=== PATIENT | female | born 1960 | race African-American/Black ===

== ENCOUNTER 2020-08-29 08:45 | Day surgery (SDC) | payer BC ==
[2020-08-29] MEDS ORDERED: Ringers Lactate 1,000 ML IV ONE (13:12)
[2020-08-29 13:15] VITALS: O2SAT 100
[2020-08-29] MEDS ORDERED: propofoL 200 MG/20 ML VIAL IV ONE (18:51)
[2020-08-29] MEDS ORDERED: LIDOCAINE 1% MPF 5 ML VIAL ONE (18:51)
--- NOTE | 2020-08-29 18:55 | ENDO RPT ---
[address], [address] COLONOSCOPY PROCEDURE REPORT EXAM DATE: 08/29/2020 PATIENT NAME: Luis Manuel Leigh MR #: [id number] BIRTHDATE: 1960 ATTENDING: Jaen Rubalcava DR STATUS: outpatient BENCH MANAGER: Izabel Hammond RN and Viki Lal INDICATIONS: The patient is a 60 yr old Female here for a colonoscopy due to colon cancer screening PROCEDURE PERFORMED: Colonoscopy with biopsy - cold polypectomy and Colonoscopy with biopsy MEDICATIONS: Per Anesthesia. ESTIMATED BLOOD LOSS: None CONSENT: The patient understands the risks and benefits of the procedure and understands that these risks include, but are not limited to: sedation, allergic reaction, infection, perforation and/or bleeding. Alternative means of evaluation and treatment include, among others: physical exam, x-rays, and/or surgical intervention. The patient elects to proceed with this endoscopic procedure. DESCRIPTION OF PROCEDURE: During intra-op preparation period all mechanical medical equipment was checked for proper function. Hand hygiene and appropriate measures for infection prevention was taken. Procedure, possible complications, alternatives including, but not limited to possibility of bleeding, perforation, tear, infection, sepsis, need for surgery, need for blood transfusion, were explained to the patient. After the risks, benefits and alternatives of the procedure were thoroughly explained, Informed consent was verified, confirmed and timeout was successfully executed by the treatment team. The patient was placed in the left lateral position. A digital rectal exam was performed and revealed internal hemorrhoids. After appropriate level of anesthesia, the scope was passed. The EC-[id number] ([id number]) endoscope was introduced through the anus and advanced to the cecum, which was identified by both the appendix and ileocecal valve. The quality of the prep was fair. The instrument was then slowly withdrawn as the colon was fully examined. Scope withdrawal time was 12 minutes. COLON FINDINGS: A medium sized smooth and polypoid shaped pedunculated polyp, ranging between 3-7mm in size, was found in the ascending colon. A polypectomy was performed with a cold snare. The resection was complete, the polyp tissue was completely retrieved and sent to histology. Melanosis coli. Retroflexed views revealed no abnormalities. The scope was then completely withdrawn from the patient and the procedure terminated. ADVERSE EVENTS: There were no complications. IMPRESSIONS: 1. Medium sized pedunculated polyp, ranging between 3-7mm in size, was found in the ascending colon; polypectomy was performed with a cold snare 2. Melanosis coli 3. Internal hemorrhoids RECOMMENDATIONS: 1. avoid NSAIDS for 2 weeks 2. await biopsy results 3. fiber rich diet 4. follow-up: office 2 week(s) 5. Monitor for any evidence of rectal bleeding. 6. yearly hemoquant 7. hemorrhoidal hygiene RECALL: for Colonoscopy, pending biopsy results. Jean Rubalcava DR eSigned: Jean Rubalcava DR 08/29/2020 6:54 PM cc: CPT CODES: ICD9 CODES: PATIENT NAME: Luis Manuel Leigh MR#: [id number]
[2020-08-29 19:13] VITALS: TEMP 96.8
[2020-08-29 19:30] VITALS: BP 128/75
== END 2020-08-29 19:28 | disposition home or self-care (01) ==
LOC: OR 08:45
PROVIDERS: ATTEND Surgery
PROC: 0DBK8ZX Excision of Ascending Colon, Via Natural or Artificial Opening Endoscopic, Diagnostic (ICD-10-PCS; principal; 2020-08-29 12:30)
DX: Z12.11 Encounter for screening for malignant neoplasm of colon (principal); D12.2 Benign neoplasm of ascending colon; K64.8 Other hemorrhoids; K63.89 Other specified diseases of intestine
CPT/HCPCS: 88305; 45385; J2704; J7120

== ENCOUNTER → 2020-09-15 | Day surgery (SDC) | payer BC ==
[~2020-09-15] MED LIST: BUPIVACAINE 0.25% PF 30 ML VIAL ONE; CEFAZOLIN/SWI 1gm 1 GM/10 ML SYR ONE; FENTANYL CITR 250 MCG/5 ML ONE; GLYCOPYRROLATE 0.2 MG/ML SYR ONE; KETOROLAC 30 MG/ML INJ ONE; LIDOCAINE 2% MPF 5 ML VIAL ONE; MIDAZOLAM HCL 2 MG/2 ML INJ ONE; ONDANSETRON 4 MG/2 ML VIAL ONE; PROMETHAZINE INJ 25 MG/ML AMP ONE; ROCURONIUM 50 MG/5 ML VIAL IV ONE; Ringers Lactate 1,000 ML IV ONE; dexAMETHasone 10 MG/ML VIAL ONE; propofoL 200 MG/20 ML VIAL IV ONE
[2020-09-15 11:36] VITALS: O2SAT 100
[2020-09-15] MEDS: HYDROMORPHONE HCL 1 MG/ML INJ ONE ×2 (11:40→11:50)
--- NOTE | 2020-09-15 11:42 | P.OP ---
Preoperative diagnosis: Incarcerated Ventral Incisional Recurrent Hernia Postoperative diagnosis: Incarcerated Ventral Incisional Recurrent Hernia Primary procedure: Open Ventral Incisional Hernia Repair with mesh Anesthesia: GETA Estimated blood loss: <5cc Specimen: hernia sack Findings: Incarcerated Ventral Incisional Recurrent Hernia - omentum Implants: 4.3cm Large Bard Ventralex mesh with strap Transferred to: Recovery Room Condition: Good
--- NOTE | 2020-09-15 13:27 | OP ---
Date of Procedure: 09/15/2020 Surgeon: Jean Rubalcava MD, Preoperative Diagnosis: Incarcerated ventral incisional recurrent hernia. Postoperative Diagnosis: Incarcerated ventral incisional recurrent hernia. Procedure Performed: Open ventral incisional hernia repair with mesh. Anesthesia: General endotracheal plus local with 0.25% Marcaine. Estimated Blood Loss: Less than 5 mL. Specimens: Hernia sac. Findings: Incarcerated incisional ventral hernia, omentum entrapped and incarceration, but no tegan ulation evident. Implants: A 4.3 cm Bard Ventralex mesh with straps. Disposition: The patient was transferred to recovery room in good condition. Procedure In Detail: After informed consent was obtained, the patient was brought to the operating r oom, prepped and draped in the usual sterile fashion. After adequate anesthesia was achieved, an inf raumbilical incision was made with a 15 blade down through subcutaneous tissues. Electrocautery was then used to dissect down the subcutaneous tissues. The deep dermal plane was retracted and the sharron ia sac was evident at this point. There was a large hernia defect. The hernia defect was opened in its entirety at this point and the omentum was entrapped at this point. I had to make a small fascia l incision in the inferior aspect of the linea alba to allow for reduction of the entrapped omentum. The omentum was returned to the preperitoneal space and the hernia sac was ligated at this point and sent off for pathologic examination. The area was swept clean at this point and I performed a finge r sweep and electrocautery, dissected back some attachments on the preperitoneal surface to allow for landing zone for the 4.3 cm Bard Ventralex mesh. At this point, I brought the mesh in a parachute t ype fashion using 0 PDS suture circumferentially around. I secured in the ring, placed it in the pre peritoneal space and then secured this circumferentially around. I then closed the fascia over top, irrigated the area copiously, and dried the area. At this point, deep dermal planes were closed with a 3-0 Vicryl suture and the skin was closed with a 4-0 Monocryl in running fashion. Dermabond place d over top. The patient tolerated the procedure well without evidence of complication and transferre d to PACU in good condition. All counts were correct at the end of the case. TK/MODL Voice ID: [id number] Report ID: [id number]
[2020-09-15 13:31] VITALS: BP 162/66; TEMP 96.3
== END | disposition home or self-care (01) ==
LOC: OR 08:03
PROVIDERS: ATTEND Surgery
PROC: 0WUF0JZ Supplement Abdominal Wall with Synthetic Substitute, Open Approach (ICD-10-PCS; principal; 2020-09-15 09:30)
DX: K43.6 Other and unspecified ventral hernia with obstruction, without gangrene (principal); Z20.822 Contact with and (suspected) exposure to COVID-19
CPT/HCPCS: 88302; 49566; 49568; U0003; J2704; J2550; J2250; J3010; J1100; J1170; J0690; J7120; J2405

== ENCOUNTER 2024-12-03 13:48 | Emergency (ER) | payer OTHER ==
[2024-12-03] MEDS ORDERED: IBUPROFEN 200 MG TAB PO ONE (14:22)
[2024-12-03] MEDS ORDERED: IBUPROFEN 400 MG TAB ONE (14:22)
[2024-12-03] MEDS ORDERED: HYDROCODONE/APAP 5/325 MG TAB ONE (14:22)
--- NOTE | 2024-12-03 14:53 | RAD REPORT ---
EXAMINATION: Humerus Right CLINICAL INDICATION: Female, 64 years old. PAIN RIGHT COMPARISON: No prior exam. FINDINGS: Comminuted fracture involving the right proximal and mid humeral diaphysis with mild latera l angulation and a large butterfly fragment. IMPRESSION: Comminuted right proximal to mid humeral diaphyseal fracture.
--- NOTE | 2024-12-03 15:20 | RAD REPORT ---
EXAMINATION: Upper Ext Angio CLINICAL INDICATION: Female, 64 years old.angio, midshift fracture of humerus TECHNIQUE: CT above extremity was performed without contrast. Reformats were performed. One or more o f the following dose reduction techniques were used: Automated exposure control, adjustment of the mA and/or kV according to patient size, and/or iterative reconstruction. Unless otherwise specified, incidental findings do not require dedicated imaging follow-up. [id number]. COMPARISON: Same day radiograph FINDINGS: Comminuted right proximal and mid humeral diaphyseal fracture. No evidence of underlying arterial inj ury. No active bleeding. IMPRESSION: No arterial injury identified. No active bleeding.
--- NOTE | 2024-12-03 15:50 | ER ---
Nurse's Notes [facility] Name: Luis Manuel Leigh Age: 64 yrs Sex: Female : 1960 Arrival Date: 12/03/2024 Time: 13:48 Bed DX4 Private MD: Diagnosis: Displaced comminuted fracture of shaft of humerus, right arm, initial encounter for closed fracture Presentation: 12/03 14:27 Chief complaint: Patient states: SHE SLIPPED AND FELL AT WORK, LANDING ON RT ARM AT dd2 12:45 TODAY. PT C/O PAIN RT ELBOW/UPPER ARM. DENIES LOC OR HITTING HEAD. Coronavirus screen: At this time, the client does not indicate any symptoms associated with coronavirus-19. Ebola Screen: No symptoms or risks identified at this time. Initial Sepsis Screen: Does the patient meet any 2 criteria? No. Patient's initial sepsis screen is negative. Does the patient have a suspected source of infection? No. Patient's initial sepsis screen is negative. Risk Assessment: Do you want to hurt yourself or someone else? Patient reports no desire to harm self or others. Onset of symptoms was December 03, 2024 at 12:45. 14:27 Method Of Arrival: Ambulatory dd2 14:27 Acuity: MADDI 3 dd2 Triage Assessment: 14:29 General: Appears in no apparent distress. uncomfortable, Behavior is calm, cooperative, dd2 appropriate for age. Pain: Complains of pain in right elbow and right tricep. Musculoskeletal: Circulation, motion, and sensation intact. Range of motion: limited in right elbow Reports pain in right elbow and right tricep. Historical: - Allergies: 14:29 No Known Allergies; dd2 - PMHx: 14:29 None; dd2 - PSHx: 14:29 None; dd2 - Social history:: Smoking status: Patient denies any tobacco usage or history of. Vital Signs: 14:27 BP 154 / 74; Pulse 72; Resp 16; Temp 98.3; Pulse Ox 99% on R/A; Weight 83.91 kg; Pain dd2 08/23; 14:27 Pain Scale: Adult dd2 ED Course: 13:52 Patient arrived in ED. im 13:55 Jailene Erickson FNP-C is PHCP. kb 13:55 Ramone Whitten MD is Attending Physician. kb 14:29 Triage completed. dd2 14:29 Arm band placed on left wrist. dd2 14:31 Humerus Right XRAY In Process Unspecified. EDMS 14:51 Inserted saline lock: 20 gauge in left antecubital area, using aseptic technique. Blood ts3 collected. Flushed with 10 mL NS. 15:14 Upper Ext Angio In Process Unspecified. EDMS 15:50 Santos Coley MD is Referral Physician. kb Administered Medications: 14:35 Drug: Ibuprofen PO 600 mg PO once Route: PO; dd2 14:36 Drug: HYDROcodone-acetaminophen PO 5 mg-325 mg 1 tabs PO once Route: PO; dd2 Outcome: 15:50 Discharge ordered by . kb 16:20 Discharged to home ambulatory, ar8 16:20 Condition: stable ar8 16:20 Discharge instructions given to patient, family, Instructed on discharge instructions, follow up and referral plans. medication usage, Demonstrated understanding of instructions, follow-up care, medications, Prescriptions given X 1, 16:52 Patient left the ED. jb4 Signatures: Dispatcher [employer] EDMS Jailene Erickson, SENIOR LIVING ADVISOR-C SENIOR LIVING ADVISOR-Ckb Chaim Vargas, RN RN jb4 Lorena Woodward DIANA RN RN dd2 Megan Stack ts3 Chance Hand, RN RN ar8
--- NOTE | 2024-12-03 15:50 | EDPHYS ---
Physician Documentation [facility] Name: Luis Manuel Leigh Age: 64 yrs Sex: Female : 1960 Arrival Date: 12/03/2024 Time: 13:48 Bed DX4 Private MD: ED Physician Ramone Whitten HPI: 12/03 14:00 This 64 yrs old Black Female presents to ER via Unassigned with complaints of Arm kb Injury - right. 14:00 Pt is a 64 year old female who presents for right elbow pain after slipping and falling kb at work today at 1245. States she tried to brace herself and believes she broke her arm. Denies hitting head, loc, any other injuries or pain. Pain worse with movement. . Historical: - Allergies: 14:29 No Known Allergies; dd2 - PMHx: 14:29 None; dd2 - PSHx: 14:29 None; dd2 - Social history:: Smoking status: Patient denies any tobacco usage or history of. ROS: 14:01 Constitutional: As per HPI kb Exam: 14:01 Constitutional: This is a well developed, well nourished patient who is awake, alert, kb and in no acute distress. Head/Face: Normocephalic, atraumatic. ENT: Moist Mucous membranes Cardiovascular: Regular rate Respiratory: Respirations even and unlabored. No increased work of breathing. Talking in full sentences Skin: Warm, dry with normal turgor. Normal color. Neuro: Awake and alert, GCS 15, oriented to person, place, time, and situation. 14:01 Musculoskeletal/extremity: Extremities: grossly normal except: noted in the right tricep and right elbow: pain, tenderness, ROM: limited active range of motion due to pain, Circulation is intact in all extremities. Sensation intact. Vital Signs: 14:27 BP 154 / 74; Pulse 72; Resp 16; Temp 98.3; Pulse Ox 99% on R/A; Weight 83.91 kg; Pain dd2 710; 14:27 Pain Scale: Adult dd2 Procedures: 16:13 Splinting: Splint applied to right arm using Orthoglass splint, applied by tech. kb Examined by me, post splint application: neurovascular intact, 2+ distal pulses palpable, brisk capillary refill noted, Patient tolerated well. MDM: 13:55 Medical Screening Exam initiated kb 14:02 Differential diagnosis: dislocation, closed fracture, contusion. Data reviewed: vital kb signs, nurses notes. 14:31 Management of patient was discussed with the following: Cash Management Officer: Dr Coley recommends kb coaptation splint and sling. Follow up in office in one week. Independent interpretation of the following test(s) in the Emergency Department X-Ray: My interpretation is displaced fracture of right humerus. 14:45 Management of patient was discussed with the following: Dr Whitten, recommends CTA prior kb to discharge. 15:27 [facility]ed[facility]. . Counseling: I had a detailed kb discussion with the patient and/or guardian regarding the historical points, exam findings, and any diagnostic results supporting the discharge/admit diagnosis, radiology results, the need for outpatient follow up, a orthopedic surgeon, to return to the emergency department if symptoms worsen or persist or if there are any questions or concerns that arise at home. 12/03 16:21 Order name: CREATININE WHOLE BLOOD; Complete Time: 16:36 EDMS 12/03 14:00 Order name: Humerus Right XRAY; Complete Time: 15:18 kb 12/03 14:42 Order name: Upper Ext Angio; Complete Time: 15:25 EDMS 12/03 14:00 Order name: Sling; Complete Time: 14:27 kb 12/03 14:25 Order name: IV Start; Complete Time: 14:51 kb 12/03 15:26 Order name: Splint: coaptation splint; Complete Time: 16:22 kb Administered Medications: 14:35 Drug: Ibuprofen PO 600 mg PO once Route: PO; dd2 14:36 Drug: HYDROcodone-acetaminophen PO 5 mg-325 mg 1 tabs PO once Route: PO; dd2 Disposition Summary: 12/03/24 15:50 Discharge Ordered Notes: Location: Home kb Condition: Stable kb Diagnosis - Displaced comminuted fracture of shaft of humerus, right arm, initial encounter for kb closed fracture Followup: kb - With: Emergency Department - When: As needed - Reason: Worsening of condition Followup: kb - With: Private Physician - When: 2 - 3 days - Reason: Recheck today's complaints, Continuance of care, Re-evaluation by your physician Followup: kb - With: Santos Coley MD - When: 1 week - Reason: Discharge Instructions: - Discharge Summary Sheet kb - Humerus Fracture Treated With Immobilization, [id number] kb Forms: - Medication Reconciliation Form kb - Antibiotic Education kb - Prescription Opioid Use kb - Patient Portal Instructions kb - Leadership Thank You Letter kb Prescriptions: - acetaminophen-codeine 300-30 mg Oral tablet - take 1 tablet ORAL route every 4 to 6 hours as needed for pain; 12 tablet; kb Refills: 0, Product Selection Permitted Signatures: Dispatcher [employer] EDMS Jailene Erickson, DAVEY-JERSEY Becerra, RN RN dd2 Corrections: (The following items were deleted from the chart) 14:31 14:01 Elbow Right 3 View+RAD.RAD.BRZ ordered. EDMS EDMS 14:42 14:33 CT RIGHT HUMERUS WO CONTRAST ordered. EDMS EDMS
[2024-12-03 21:41] VITALS: BP 154/74; TEMP 98.3; O2SAT 99
== END 2024-12-03 16:52 | disposition home or self-care (01) ==
LOC: ER 13:48
PROC: 2W3AX1Z Immobilization of Right Upper Arm using Splint (ICD-10-PCS; principal; 2024-12-03)
DX: S42.351A Displaced comminuted fracture of shaft of humerus, right arm, initial encounter for closed fracture (principal); W01.0XXA Fall on same level from slipping, tripping and stumbling without subsequent striking against object, initial encounter; Y99.0 Civilian activity done for income or pay
CPT/HCPCS: 82565; 73206; 73060; 99284; 29105; Q9967